=== PATIENT | female | born 1995 | race Caucasian/White ===

== ENCOUNTER 2019-09-27 12:55 | Outpatient (CLI) | payer MEDICAID ==
[2019-09-27 14:07] LABS: Hematocrit 37.9 % (30.3-42.9); Hemoglobin 12.8 gm/dl (10.1-14.3); Mean Corpuscular HGB Conc 34 % (30-34); Mean Corpuscular Volume 85 fl (79-97); Platelet Count 295 K/mm3 (140-440); Red Blood Count 4.46 M/mm3 (3.65-5.03); Red Cell Distribution Width 13.3 % (13.2-15.2)
[2019-09-27 14:13] LABS: Bacteria,Urine 4+ /HPF (Negative); Bilirubin,Urine NEG (Negative); Blood,Urine NEG (Negative); Color,Urine Yellow (Yellow); Mucus,Urine FEW /HPF; Urobilinogen,Urine < 2.0 mg/dL (<2.0)
[2019-09-27 14:30] LABS: Alanine Aminotransferase 7 units/L (7-56); Uric Acid 3.4 mg/dL (3.5-7.6)
--- NOTE | 2019-09-27 14:44 | Ultrasound Report ---
ULTRASOUND OBSTETRIC LIMITED ULTRASOUND BIOPHYSICAL PROFILE INDICATION / CLINICAL INFORMATION: Evaluate well-being. Elevated blood pressure. Estimated clinical age of 37 weeks, 2 days. COMPARISON: None available. FINDINGS: BREATHING MOVEMENT = 2 GROSS BODY MOVEMENT = 2 TONE = 2 QUALITATIVE AMNIOTIC FLUID VOLUME = 2 TOTAL BIOPHYSICAL SCORE = 8/8 AMNIOTIC FLUID INDEX (cm) = 10.3 PRESENTATION: Cephalic. HEART RATE (beats per minute): 157 ADDITIONAL FINDINGS: None. IMPRESSION: 1. Biophysical Score = 8/8 2. Additional findings as above. Signer Name: Chente Gamino MD Signed: 09/27/2019 2:40 PM Workstation Name: [id number]
[2019-09-27 15:54] VITALS: BP 127/79
[2019-09-27 17:19] LABS: Creatinine,Urine 131.5 mg/dL (0.1-20.0); Protein/Creatinine Ratio,Urine 0.16
== END 2019-09-27 14:06 | disposition home or self-care (01) ==
LOC: TRG 12:55
PROVIDERS: ATTEND Obstetrics & Gynecology
DX: O47.1 False labor at or after 37 completed weeks of gestation (principal); Z3A.37 37 weeks gestation of pregnancy
CPT/HCPCS: 36415; 59025; 76815; 76819; 81001; 82565; 82570; 83615; 84156; 84450; 84460; 84550; 85027; 86850; 86900; 86901

== ENCOUNTER 2019-10-02 10:25 | Outpatient (CLI) | payer MEDICAID ==
[2019-10-02 11:35] LABS: Hematocrit 37.3 % (30.3-42.9); Hemoglobin 12.4 gm/dl (10.1-14.3); Mean Corpuscular HGB Conc 33 % (30-34); Mean Corpuscular Volume 85 fl (79-97); Platelet Count 266 K/mm3 (140-440); Red Cell Distribution Width 13.2 % (13.2-15.2)
[2019-10-02 11:51] LABS: Bacteria,Urine 3+ /HPF (Negative); Bilirubin,Urine NEG (Negative); Blood,Urine NEG (Negative); Color,Urine Yellow (Yellow); Mucus,Urine FEW /HPF; Protein,Urine <15 mg/dL mg/dL (Negative); Urobilinogen,Urine < 2.0 mg/dL (<2.0)
[2019-10-02 12:11] LABS: Alanine Aminotransferase 8 units/L (7-56)
[2019-10-02 13:03] VITALS: BP 111/70
--- NOTE | 2019-10-02 14:04 | Ultrasound Report ---
ULTRASOUND BIOPHYSICAL PROFILE ULTRASOUND OB LIMITED INDICATION: BPP/DIA. well-being TECHNIQUE: Transabdominal ultrasound imaging. COMPARISON: 09/27/2019 FINDINGS: breathing movement = 2 Gross body movement = 2 tone = 2 Qualitative amniotic fluid volume = 2 Total biophysical score = 8/8 Amniotic fluid index is 8.7 cm. Presentation is cephalic. heart rate is 127 beats per minute. IMPRESSION: biophysical profile equals 8/8. Signer Name: Yogi Cerrato Jr, MD Signed: 10/02/2019 1:59 PM Workstation Name: [id number]
[2019-10-04 12:03] LABS: Creatinine 24 Hour,Urine 1.5 (0.8-2.8); Creatinine,Urine 96.6 mg/dL (0.1-20.0)
== END 2019-10-02 15:03 | disposition home or self-care (01) ==
LOC: TRG 10:25
PROVIDERS: ATTEND Obstetrics & Gynecology
DX: O26.893 Other specified pregnancy related conditions, third trimester (principal); I10 Essential (primary) hypertension; Z3A.38 38 weeks gestation of pregnancy
CPT/HCPCS: 36415; 59025; 76815; 76819; 81001; 82565; 82570; 83615; 84156; 84450; 84460; 85027

== ENCOUNTER 2021-08-23 12:10 | Emergency (ER) | payer MEDICAID ==
[2021-08-23] MEDS ORDERED: METOCLOPRAMIDE 10 MG TAB PO ONE (12:27)
[2021-08-23] MEDS ORDERED: ACETAMINOPHEN 325 MG TAB PO ONE (12:27)
[2021-08-23 14:12] LABS: Basophils % (Auto) 0.2 % (0.0-1.8); Eosinophils % (Auto) 0.3 % (0.0-4.3); Hematocrit 42.1 % (30.3-42.9); Hemoglobin 13.6 gm/dl (10.1-14.3); Lymphocytes # (Auto) 1.2 K/mm3 (1.2-5.4); Lymphocytes % (Auto) 12.6 % (13.4-35.0); Mean Corpuscular HGB Conc 32 % (30-34); Mean Corpuscular Volume 84 fl (79-97); Monocytes # (Auto) 0.4 K/mm3 (0.0-0.8); Monocytes % (Auto) 4.4 % (0.0-7.3); Platelet Count 254 K/mm3 (140-440); Red Blood Count 5.01 M/mm3 (3.65-5.03); Red Cell Distribution Width 16.4 % (13.2-15.2)
--- NOTE | 2021-08-23 14:12 | Ultrasound Report ---
ULTRASOUND OBSTETRIC INDICATION / CLINICAL INFORMATION: , abd pain. Beta-hCG none available. Clinical Gestational Age (GA) in weeks, days: 12 weeks 6 days TECHNIQUE: Transabdominal and Transvaginal. COMPARISON: None available. FINDINGS: GESTATIONAL SAC: Well-defined oval shape and intrauterine in location. Gestational sac measures 70 mm corresponding to 13 weeks 4 days. YOLK SAC: No significant abnormality. EMBRYO/FETUS: No significant abnormality. - [place]-Rump Length = 6.6 cm = 12, 6 weeks, days - Heart Rate, beats per minute (if present) = 157 ADNEXA: Right ovary is normal measuring 3.1 x 1.4 x 1.5 cm. Left ovary is normal measuring 3.1 x 1.7 x 1.4 cm. FREE FLUID: Minimal free fluid is nonspecific. ADDITIONAL FINDINGS: None. IMPRESSION: 1. Single, living intrauterine with estimated sonographic age of 13 weeks 2 days. Signer Name: Paco Karimi MD Signed: 08/23/2021 2:08 PM Workstation Name: [id number]
--- NOTE | 2021-08-23 14:12 | Ultrasound Report ---
ULTRASOUND OBSTETRIC INDICATION / CLINICAL INFORMATION: , abd pain. Beta-hCG none available. Clinical Gestational Age (GA) in weeks, days: 12 weeks 6 days TECHNIQUE: Transabdominal and Transvaginal. COMPARISON: None available. FINDINGS: GESTATIONAL SAC: Well-defined oval shape and intrauterine in location. Gestational sac measures 70 mm corresponding to 13 weeks 4 days. YOLK SAC: No significant abnormality. EMBRYO/FETUS: No significant abnormality. - [place]-Rump Length = 6.6 cm = 12, 6 weeks, days - Heart Rate, beats per minute (if present) = 157 ADNEXA: Right ovary is normal measuring 3.1 x 1.4 x 1.5 cm. Left ovary is normal measuring 3.1 x 1.7 x 1.4 cm. FREE FLUID: Minimal free fluid is nonspecific. ADDITIONAL FINDINGS: None. IMPRESSION: 1. Single, living intrauterine with estimated sonographic age of 13 weeks 2 days. Signer Name: Paco Karimi MD Signed: 08/23/2021 2:08 PM Workstation Name: [id number]
[2021-08-23 14:31] LABS: Alanine Aminotransferase 8 units/L (7-56); Blood Urea Nitrogen 5 mg/dL (7-17); Calcium 9.2 mg/dL (8.4-10.2); Hemolysis Index 5
[2021-08-23 14:32] LABS: BUN/Creatinine Ratio 13
--- NOTE | 2021-08-23 14:53 | Emergency Department Report ---
ED Abdominal Pain HPI - General Chief Complaint: Abdominal Pain Stated Complaint: ABD PAIN WITH Time Seen by Provider: 08/23/21 12:19 Source: patient Mode of arrival: Ambulatory Limitations: No Limitations - History of Present Illness Initial Comments: Patient is a 25-year-old female presents emergency room with complaints of intermittent generalized abdominal pain for approximately 2 weeks. She states that she also has nausea and vomiting. She denies any fever, diarrhea, urinary symptoms, vaginal bleeding, vaginal discharge. She states that she is approximately 12 weeks . She states that she has been seeing [employer]. She states that she has not seen them since the abdominal pain began. She denies any past medical history. No allergies to medications. /P: 1/A: 0 Severity scale (0 -10): 4 - Related Data Previous Rx's Medication Instructions Recorded Last Taken Type Famotidine [Pepcid] 40 mg PO QHS #5 tablet 10/24/13 Unknown Rx hydrOXYzine HCL [Atarax] 25 mg PO Q6HR PRN #20 tablet 10/24/13 Unknown Rx predniSONE [Deltasone] 50 mg PO QDAY #5 tab 10/24/13 Unknown Rx HYDROcodone/APAP 5-325 [[place] 1 each PO Q6HR PRN #20 tablet 10/14/19 Unknown Rx 5/325] Ibuprofen [Motrin] 800 mg PO Q8HR PRN #60 tablet 10/14/19 Unknown Rx Acetaminophen [Tylenol] 650 mg PO Q8HR PRN #20 capsule 08/23/21 Unknown Rx Metoclopramide [Reglan] 10 mg PO Q8HR PRN #14 tab 08/23/21 Unknown Rx Allergies Allergy/AdvReac Type Severity Reaction Status Date / Time oatmeal Allergy Rash Uncoded 10/23/13 23:06 ED Review of Systems ROS: Stated complaint: ABD PAIN WITH Other details as noted in HPI Comment: All other systems reviewed and negative ED Past Medical Hx - Past Medical History Hx Hypertension: Yes Hx Heart Attack/AMI: No Hx Congestive Heart Failure: No Hx Diabetes: No Hx Deep Vein Thrombosis: No Hx Liver Disease: No Hx Renal Disease: No Hx Sickle Cell Disease: No Hx Seizures: No Hx Asthma: No Hx COPD: No Hx HIV: No - Surgical History Hx Pacemaker: No Hx Internal Defibrillator: No - Social History Smoking Status: Never Smoker - Medications Home Medications: Home Medications Medication Instructions Recorded Confirmed Last Taken Type Famotidine [Pepcid] 40 mg PO QHS #5 tablet 10/24/13 10/14/19 Unknown Rx hydrOXYzine HCL [Atarax] 25 mg PO Q6HR PRN #20 tablet 10/24/13 10/14/19 Unknown Rx predniSONE [Deltasone] 50 mg PO QDAY #5 tab 10/24/13 10/14/19 Unknown Rx HYDROcodone/APAP 5-325 [[place] 1 each PO Q6HR PRN #20 tablet 10/14/19 Unknown Rx 5/325] Ibuprofen [Motrin] 800 mg PO Q8HR PRN #60 tablet 10/14/19 Unknown Rx Acetaminophen [Tylenol] 650 mg PO Q8HR PRN #20 capsule 08/23/21 Unknown Rx Metoclopramide [Reglan] 10 mg PO Q8HR PRN #14 tab 08/23/21 Unknown Rx ED Physical Exam - General Limitations: No Limitations General appearance: alert, in no apparent distress - Head Head exam: Present: atraumatic, normocephalic - Eye Eye exam: Present: normal appearance - ENT ENT exam: Present: mucous membranes moist - Respiratory Respiratory exam: Present: normal lung sounds bilaterally. Absent: respiratory distress, wheezes, rales, rhonchi, stridor, chest wall tenderness, accessory muscle use, decreased breath sounds, prolonged expiratory - Cardiovascular Cardiovascular Exam: Present: regular rate, normal rhythm, normal heart sounds. Absent: systolic murmur, diastolic murmur, rubs, gallop - GI/Abdominal GI/Abdominal exam: Present: soft, normal bowel sounds. Absent: distended, tenderness, guarding, rebound, rigid - Neurological Exam Neurological exam: Present: alert, oriented X3 - Psychiatric Psychiatric exam: Present: normal affect, normal mood - Skin Skin exam: Present: warm, dry, intact ED Course Vital Signs 08/23/21 08/23/21 13:52 16:32 Temperature 98.4 F Pulse Rate 99 H Respiratory 16 20 Rate Blood Pressure 125/71 [Right] O2 Sat by Pulse 99 Oximetry ED Medical Decision Making - Lab Data Result diagrams: 08/23/21 13:41 08/23/21 13:41 Lab Results 08/23/21 08/23/21 08/23/21 Range/Units 13:41 13:41 13:41 WBC 9.7 (4.5-11.0) K/mm3 RBC 5.01 (3.65-5.03) M/mm3 Hgb 13.6 (10.1-14.3) gm/dl Hct 42.1 (30.3-42.9) % MCV 84 (79-97) fl MCH 27 L (28-32) pg MCHC 32 (30-34) % RDW 16.4 H (13.2-15.2) % Plt Count 254 (140-440) K/mm3 Lymph % (Auto) 12.6 L (13.4-35.0) % [place] % (Auto) 4.4 (0.0-7.3) % Eos % (Auto) 0.3 (0.0-4.3) % Baso % (Auto) 0.2 (0.0-1.8) % Lymph # (Auto) 1.2 (1.2-5.4) K/mm3 [place] # (Auto) 0.4 (0.0-0.8) K/mm3 Eos # (Auto) 0.0 (0.0-0.4) K/mm3 Baso # (Auto) 0.0 (0.0-0.1) K/mm3 Seg Neutrophils % 82.5 H (40.0-70.0) % Seg Neutrophils # 8.0 H (1.8-7.7) K/mm3 Sodium 138 (137-145) mmol/L Potassium 4.2 (3.6-5.0) mmol/L Chloride 103.1 (98-107) mmol/L Carbon Dioxide 21 L (22-30) mmol/L Anion Gap 18 mmol/L BUN 5 L (7-17) mg/dL Creatinine 0.4 L (0.6-1.2) mg/dL Estimated GFR > 60 ml/min BUN/Creatinine Ratio 13 % Glucose 88 (65-100) mg/dL Calcium 9.2 (8.4-10.2) mg/dL Total Bilirubin 0.50 (0.1-1.2) mg/dL AST 14 (5-40) units/L ALT 8 (7-56) units/L Alkaline Phosphatase 87 (35-129) units/L Total Protein 6.9 (6.3-8.2) g/dL Albumin 4.0 (3.9-5) g/dL Albumin/Globulin Ratio 1.4 % Lipase 19 (13-60) units/L HCG, Quant [id number] H (0-4) mIU/mL Urine Color (Yellow) Urine Turbidity (Clear) Urine pH (5.0-7.0) Ur Specific [place] (1.003-1.030) Urine Protein (Negative) mg/dL Urine Glucose (UA) (Negative) mg/dL Urine Ketones (Negative) mg/dL Urine Blood (Negative) Urine Nitrite (Negative) Urine Bilirubin (Negative) Urine Urobilinogen (<2.0) mg/dL Ur Leukocyte Esterase (Negative) Urine WBC (Auto) (0.0-6.0) /HPF Urine RBC (Auto) (0.0-6.0) /HPF U Epithel Cells (Auto) (0-13.0) /HPF Urine Mucus /HPF 08/23/21 Range/Units Unknown WBC (4.5-11.0) K/mm3 RBC (3.65-5.03) M/mm3 Hgb (10.1-14.3) gm/dl Hct (30.3-42.9) % MCV (79-97) fl MCH (28-32) pg MCHC (30-34) % RDW (13.2-15.2) % Plt Count (140-440) K/mm3 Lymph % (Auto) (13.4-35.0) % [place] % (Auto) (0.0-7.3) % Eos % (Auto) (0.0-4.3) % Baso % (Auto) (0.0-1.8) % Lymph # (Auto) (1.2-5.4) K/mm3 [place] # (Auto) (0.0-0.8) K/mm3 Eos # (Auto) (0.0-0.4) K/mm3 Baso # (Auto) (0.0-0.1) K/mm3 Seg Neutrophils % (40.0-70.0) % Seg Neutrophils # (1.8-7.7) K/mm3 Sodium (137-145) mmol/L Potassium (3.6-5.0) mmol/L Chloride (98-107) mmol/L Carbon Dioxide (22-30) mmol/L Anion Gap mmol/L BUN (7-17) mg/dL Creatinine (0.6-1.2) mg/dL Estimated GFR ml/min BUN/Creatinine Ratio % Glucose (65-100) mg/dL Calcium (8.4-10.2) mg/dL Total Bilirubin (0.1-1.2) mg/dL AST (5-40) units/L ALT (7-56) units/L Alkaline Phosphatase (35-129) units/L Total Protein (6.3-8.2) g/dL Albumin (3.9-5) g/dL Albumin/Globulin Ratio % Lipase (13-60) units/L HCG, Quant (0-4) mIU/mL Urine Color Yellow (Yellow) Urine Turbidity Clear (Clear) Urine pH 6.0 (5.0-7.0) Ur Specific [place] 1.024 (1.003-1.030) Urine Protein 30 mg/dl (Negative) mg/dL Urine Glucose (UA) Neg (Negative) mg/dL Urine Ketones 20 (Negative) mg/dL Urine Blood Neg (Negative) Urine Nitrite Neg (Negative) Urine Bilirubin Neg (Negative) Urine Urobilinogen < 2.0 (<2.0) mg/dL Ur Leukocyte Esterase Neg (Negative) Urine WBC (Auto) 1.0 (0.0-6.0) /HPF Urine RBC (Auto) 6.0 (0.0-6.0) /HPF U Epithel Cells (Auto) 6.0 (0-13.0) /HPF Urine Mucus 3+ /HPF Vital Signs 08/23/21 08/23/21 13:52 16:32 Temperature 98.4 F Pulse Rate 99 H Respiratory 16 20 Rate Blood Pressure 125/71 [Right] O2 Sat by Pulse 99 Oximetry - Radiology Data Radiology results: report reviewed Ordering Physician: DIA MCCOY Date of Service: 08/23/21 Procedure(s): US OB transvaginal Accession Number(s): [id number] cc: DIA MCCOY ULTRASOUND OBSTETRIC INDICATION / CLINICAL INFORMATION: , abd pain. Beta-hCG none available. Clinical Gestational Age (GA) in weeks, days: 12 weeks 6 days TECHNIQUE: Transabdominal and Transvaginal. COMPARISON: None available. FINDINGS: GESTATIONAL SAC: Well-defined oval shape and intrauterine in location. Gestational sac measures 70 mm corresponding to 13 weeks 4 days. YOLK SAC: No significant abnormality. EMBRYO/FETUS: No significant abnormality. - [place]-Rump Length = 6.6 cm = 12, 6 weeks, days - Heart Rate, beats per minute (if present) = 157 ADNEXA: Right ovary is normal measuring 3.1 x 1.4 x 1.5 cm. Left ovary is normal measuring 3.1 x 1.7 x 1.4 cm. FREE FLUID: Minimal free fluid is nonspecific. ADDITIONAL FINDINGS: None. IMPRESSION: 1. Single, living intrauterine with estimated sonographic age of 13 weeks 2 days. Signer Name: Paco Karimi MD Signed: 08/23/2021 2:08 PM Workstation Name: [id number] Transcribed By: GEORGE Dictated By: PACO KARIMI MD Electronically Authenticated By: PACO KARIMI MD Signed Date/Time: 08/23/211407 DD/ 03 TD/TT: - Medical Decision Making Patient is a 25-year-old female presents emergency room with complaints of intermittent generalized abdominal pain for approximately 2 weeks. She states that she also has nausea and vomiting. She denies any fever, diarrhea, urinary symptoms, vaginal bleeding, vaginal discharge. She states that she is approximately 12 weeks . She states that she has been seeing [employer]. She states that she has not seen them since the abdominal pain began. She denies any past medical history. No allergies to medications. /P: 1/A: 0. Vitals are stable. No abdominal tenderness on exam. Labs are stable. UA without evidence of UTI. OB ultrasound: 1. Single, living intrauterine with estimated sonographic age of 13 weeks 2 days. Patient given Tylenol and Reglan while in the emergency department with improvement of her symptoms. Discussed all findings with patient answer questions. Discussed the importance of close [employer] follow-up. Advised patient Please take medication as prescribed as needed. Increase your fluid intake. Please be sure to take a vitamin [id number]. Follow-up with your [employer]. Follow-up with a primary care doctor. Return to emergency room for any new or worsening symptoms. Critical care attestation.: If time is entered above; I have spent that time in minutes in the direct care of this critically ill patient, excluding procedure time. ED Disposition Clinical Impression: Abdominal pain during Qualifiers: Trimester: second trimester Qualified Code(s): O26.892 - Other specified related conditions, second trimester Nausea & vomiting Qualifiers: Vomiting type: unspecified Qualified Code(s): R11.2 - Nausea with vomiting, unspecified Disposition: HOME / SELF CARE / HOMELESS Is pt being admited?: No Does the pt Need Aspirin: No Condition: Stable Instructions: Abdominal Pain During , [id number], Nausea and Vomiting, Adult, [id number], Abdominal Pain (ED) Additional Instructions: Please take medication as prescribed as needed. Increase your fluid intake. Please be sure to take a vitamin [id number]. Follow-up with your [employer]. Follow-up with a primary care doctor. Return to emergency room for any new or worsening symptoms. Prescriptions: Metoclopramide [Reglan] 10 mg PO Q8HR PRN #14 tab PRN Reason: nausea/vomiting Acetaminophen [Tylenol] 650 mg PO Q8HR PRN #20 capsule PRN Reason: pain Referrals: ISAC HARRINGTON,MARY [Other] - 3-5 Days your, can tester [Other] - 3-5 Days Time of Disposition: 16:05 Print Language: IRANIAN
[2021-08-23 15:59] LABS: Bilirubin,Urine NEG (Negative); Blood,Urine NEG (Negative); Color,Urine Yellow (Yellow); Mucus,Urine 3+ /HPF; Urobilinogen,Urine < 2.0 mg/dL (<2.0)
[2021-08-23 16:33] VITALS: BP 125/71
== END 2021-08-23 16:34 | disposition home or self-care (01) ==
LOC: ED 12:10
DX: O26.891 Other specified pregnancy related conditions, first trimester (principal); O21.9 Vomiting of pregnancy, unspecified; R10.9 Unspecified abdominal pain; Z91.018 Allergy to other foods; I10 Essential (primary) hypertension; Z3A.13 13 weeks gestation of pregnancy
CPT/HCPCS: 36415; 76801; 76817; 80053; 81001; 83690; 84702; 85025; 99284

== ENCOUNTER 2022-03-05 11:59 | Outpatient (CLI) | payer MEDICAID ==
[2022-03-05 15:42] VITALS: BP 118/66
--- NOTE | 2022-03-08 10:33 | Ultrasound Report ---
ULTRASOUND OBSTETRIC LIMITED ULTRASOUND BIOPHYSICAL PROFILE INDICATION / CLINICAL INFORMATION: postdates. COMPARISON: None available. FINDINGS: BREATHING MOVEMENT = 2 GROSS BODY MOVEMENT = 2 TONE = 2 QUALITATIVE AMNIOTIC FLUID VOLUME = 2 TOTAL BIOPHYSICAL SCORE = 8/8 AMNIOTIC FLUID INDEX (cm) = 8.9 PRESENTATION: Cephalic. HEART RATE (beats per minute): 143 ADDITIONAL FINDINGS: None. IMPRESSION: 1. Biophysical Score = 8/8 Signer Name: Jameson Cade MD Signed: 03/08/2022 10:28 AM Workstation Name: [id number]
== END 2022-03-05 18:56 | disposition home or self-care (01) ==
LOC: APU 11:59 → TRG 11:59
PROVIDERS: ATTEND Obstetrics & Gynecology
DX: Z34.93 Encounter for supervision of normal pregnancy, unspecified, third trimester (principal); Z3A.40 40 weeks gestation of pregnancy
CPT/HCPCS: 59025; 76815; 76819